=== PATIENT | female | born 1940 | race Two or more races ===

== ENCOUNTER 2016-12-02 12:11 | Emergency (ER) | payer MEDICARE, MEDICAID ==
[2016-12-02 12:11] VITALS: BMI 21.6
[2016-12-02 12:21] VITALS: RESP 18
[2016-12-02] MEDS ORDERED: Promethazine/Cod 6.25mg-10mg/5ml Syr UD PO STA (12:54)
[2016-12-02] MEDS ORDERED: Albuterol-Ipratrop 3 mg / 0.5 (3 ml) UD IH STA (13:00)
[2016-12-02] MEDS ORDERED: Promethazine/Cod 6.25mg-10mg/5ml Syr UD ONE (13:18)
[2016-12-02] MEDS ORDERED: Albuterol-Ipratrop 3 mg / 0.5 (3 ml) UD ONE (13:18)
[2016-12-02] MEDS ORDERED: Iohexol 240 (50 ml) ONE (13:18)
--- NOTE | 2016-12-02 13:21 | C.PDOC ---
History Of Present Illness 76-year-old female, PMHx includes COPD, Hypertension and Schizophrenia, presents to the emergency department accompanied by daughter, requesting CT of the abdomen. Patient reports that she has been experiencing abdominal pain x3 weeks. Pain is intermittent in nature and gradually worsening, associated with nausea. Patient seen by PMD last week, and was given Rx for CT scan. Daughter reports that she went to the radiology department without making an appointment , and they were unable to get the CT, resulting in her coming to the ED for evaluation. Denies fever, chills, recent illness, drooling, dysphagia, dyspnea, neck pain, CP, SOB, wheezing, vomiting, diarrhea, bloody stools, symptoms, or any other associated symptoms. No other complaints or distress at this time. Patient with an occasional dry cough due to Hx of COPD. Time Seen by Provider: 12/02/16 12:44 Chief Complaint (Nursing): Abdominal Pain History Per: Patient, Family History/Exam Limitations: no limitations Onset/Duration Of Symptoms: Days Current Symptoms Are (Timing): Still Present Severity: Moderate Location Of Pain/Discomfort: Suprapubic Past Medical History Reviewed: Historical Data, Nursing Documentation, Vital Signs Vital Signs: Last Vital Signs Temp 98.1 F 12/02/16 12:20 Pulse 80 12/02/16 12:20 Resp 18 12/02/16 12:20 BP 144/93 H 12/02/16 12:20 Pulse Ox 96 12/02/16 16:04 - Medical History PMH: Anemia, Diabetes, Diverticulitis, HTN, Schizophrenia Denies: Chronic Kidney Disease - [facility] Procedures INJECT/INFUSE NEC (04/04/15) OTHER C.A.T. SCAN (03/13/14) PACKED CELL TRANSFUSION (02/09/14) PERCUTANEOUS ABDOMINAL DRAINAGE (02/09/14) REMOV TRUNK DEVICE NEC (03/13/14) Family History: States: Unknown Family Hx - Social History Hx Tobacco Use: Yes Hx Alcohol Use: No Hx Substance Use: No - Immunization History Hx Tetanus Toxoid Vaccination: No Hx Influenza Vaccination: No Hx Pneumococcal Vaccination: No Review Of Systems Except As Marked, All Systems Reviewed And Found Negative. Constitutional: Negative for: Fever, Chills Cardiovascular: Negative for: Chest Pain, Palpitations Respiratory: Negative for: Shortness of Breath Gastrointestinal: Positive for: Nausea, Abdominal Pain. Negative for: Vomiting , Diarrhea, Melena, Hematochezia, Hematemesis Musculoskeletal: Negative for: Back Pain Neurological: Negative for: Weakness, Numbness, Headache, Dizziness Physical Exam - Physical Exam Appears: Non-toxic, No Acute Distress Skin: Warm, Dry, No Rash Head: Normacephalic Eye(s): bilateral: PERRL Oral Mucosa: Moist Lips: Normal Appearing Throat: No Erythema Neck: Trachea Midline, Supple Cardiovascular: Rhythm Regular, No Friction Rub, No Murmur, No JVD Respiratory: No Accessory Muscle Use, No Stridor, Wheezing (scattered right base ) Gastrointestinal/Abdominal: Soft, Tenderness (Moderate, suprapubic), No Distention, No Guarding, No Rebound, No Hernia Back: No CVA Tenderness Extremity: No Pedal Edema Neurological/Psych: Oriented x3, Normal Speech ED Course And Treatment - Laboratory Results Result Diagrams: 12/02/16 13:18 12/02/16 13:18 ECG: Viewed By Me ECG Rhythm: Sinus Rhythm ECG Interpretation: No Acute Changes Interpretation Of ECG: Sinus Rhythm w/ PACs, Left [place] Deviation, and Q waves in inferior leads. No acute ST/T wave changes. Rate From EC O2 Sat by Pulse Oximetry: 96 - CT Scan/US CT ABD/PEL Other Rad Studies (CT/US): Read By Radiologist, Radiology Report Reviewed CT/US Interpretation: Accession No. : [id number]. Patient Name / ID : ZANDRA MONDRAGON / [id number]. Exam Date : 12/02/2016 14:38:36 ( Approved ). Study Comment : Sex / Age : F / 76Y. Creator : Megan Bennett. Dictator : Megan Bennett. Radiological Technologist : [employer] Payroll Consultant : Megan Bennett. Approver2 : Report Date : 12/02/2016 15:30:47. My Comment : . PROCEDURE: CT Abdomen and Pelvis with contrast. HISTORY: LLQ pain. COMPARISON: Comparison is made to the previous study dated 12/09/2014. TECHNIQUE: Contrast dose: 100 mL Visipaque 320 intravenously. Axial and reformatted coronal and sagittal CT images of the abdomen and pelvis were obtained after IV and oral contrast administration. Radiation dose: Total exam DLP = 369.72 mGy-cm. This CT exam was performed using one or more of the following dose reduction techniques: Automated exposure control, adjustment of the mA and/or kV according to patient size, and/or use of iterative reconstruction technique. FINDINGS: LOWER THORAX : Again seen is a 4 millimeter nodule at the right lower lobe image 14 has not significantly changed since the previous exam. Cardiomegaly is again noted. LIVER: Unremarkable. No gross lesion or ductal dilatation. GALLBLADDER AND BILE DUCTS: Unremarkable. PANCREAS: Unremarkable. No gross lesion or ductal dilatation. SPLEEN: Unremarkable. ADRENALS: Thickening of the left adrenal gland is again noted. There is 90 millimeter heterogeneous low-attenuation nodule at or adjacent to the left adrenal gland and anterior to the left kidney is again noted. KIDNEYS AND URETERS: Unremarkable. No hydronephrosis. No solid mass. VASCULATURE: Unremarkable. No aortic aneurysm. BOWEL: Colonic diverticulosis are again seen at the descending and sigmoid colon. Sigmoid colon wall thickening is also again seen. No definite evidence of diverticulitis in this study. Mildly dilated small bowel loops noted. Mild constipation in the right colon. APPENDIX: No evidence of appendicitis. PERITONEUM: Unremarkable. No free fluid. No free air. LYMPH NODES: Unremarkable. No enlarged lymph nodes. BLADDER: Unremarkable. REPRODUCTIVE: Heterogeneous mass lesion is again seen at the right aspect of the pelvis. There is also heterogeneous mass at the left aspect of the uterus. The uterus border is not well visualized in this study. . BONES: No acute fracture. OTHER FINDINGS: None. IMPRESSION: Mildly dilated small bowel loops demonstrate mild diffuse wall thickening. Correlate clinically for enteritis. Mild constipation. Colonic diverticulosis without evidence of diverticulitis. Heterogeneous mass lesion in the pelvis. Further assessment by ultrasound and/ or MRI of the pelvis is suggested. The possibility of malignant neoplasm should be considered. Interval appearance of infrarenal abdominal aortic aneurysm measures 3.6 centimeter in transverse diameter since the previous exam. Progress Note: On re-evaluation, pt is afebrile, hemodynamicaly stable. non- toxic. PusleOx 96%RA. ENT: no acute findings. Lungs: CTA B/L, BS equal B/L. CVS: (+)S1S2, reg. Abd: benign, (-) guarding, (-) rebound, (-) localizedtenderness. Imaging review, diagnostics review. Case discussed with ED attending and no acute findings noted. Case discussed with pt's PMD Dr. Sanchez and clinicl findings/results review and discharge with outpt f/u recommend at this time. results review and discussed with pt and daugther, has clinical findings c/w COPD, abdominal pain r/o pelvic mass. Pt and family understand, pt request discharge now. Medical Decision Making Medical Decision Making: Impression Lower abdominal pain x3 weeks. Patient noted to be coughing, she was offered a nebulizer treatment, but is refusing at this time, and is requesting cough syrup instead. Plan: * CT Abd/Pel * EKG * BNP, CMP, Lipase, Trop I * CBC, PTT, PT * Chest X-Ray * Duoneb, Zofran, Phenergan/Codeine * Urinalysis * Reassess and Disposition Disposition Counseled Patient/Family Regarding: Studies Performed, Diagnosis, Need For Followup, Rx Given - Disposition Referrals: Bunny Sanchez MD [Staff Provider] - Disposition Time: 15:01 Condition: STABLE Additional Instructions: Take medication as prescribed FOLLOW UP WITH FOR FURTHER EVALUATION/MRI AND ULTRASOUND FOR FURTHER EVALUATION OF PELVIC MASS RETURN TO ED IFANY WORSENING OR NEW CHANGES. Prescriptions: Albuterol HFA [Ventolin HFA 90 mcg/actuation (8 g)] 1 puff IH Q6 #1 inhaler Promethazine/Codeine [Phenergan/Codeine Oral Syrup] 5 ml PO BID #60 ml traMADol [Ultram] 50 mg PO TID #7 tab Instructions: Abdominal Pain (ED), COPD (Chronic Obstructive Pulmonary Disease ) (ED) - Clinical Impression Clinical Impression: Abdominal pain, COPD (chronic obstructive pulmonary disease) - Scribe Statement The provider has reviewed the documentation as recorded by the Scribe Evelina Israel All medical record entries made by the Scribe were at my direction and personally dictated by me. I have reviewed the chart and agree that the record accurately reflects my personal performance of the history, physical exam, medical decision making, and the department course for this patient. I have also personally directed, reviewed, and agree with the discharge instructions and disposition.
[2016-12-02 13:22] LABS: BASO % 0.4 % (0.0-2.0); EOS # 0.1 K/uL (0.0-0.7); EOS % 0.5 % (0.0-4.0); HEMATOCRIT 42.4 % (34.0-47.0); LYMPH # 2.5 K/uL (1.0-4.3); LYMPH % 26.4 % (20.0-40.0); MEAN CELL VOLUME 100.6 fL (81.0-99.0); MEAN CORPUSCULAR HEMOGLOBIN 32.7 pg (27.0-31.0); MEAN CORPUSCULAR HGB CONC 32.5 g/dL (33.0-37.0); MEAN PLATELET VOLUME 6.6 fL (7.2-11.7); MONO # 0.8 K/uL (0.0-0.8); MONO % 8.5 % (0.0-10.0); NRBC % 0.1 % (0.0-2.0); RED CELL DISTRIBUTION WIDTH 14.2 % (11.5-14.5); WHITE BLOOD COUNT 9.5 K/uL (4.8-10.8)
[2016-12-02 13:30] LABS: CHLORIDE 93 mmol/L (98-107); POTASSIUM 4.1 mmol/L (3.6-5.2); SODIUM 138 mmol/L (132-148)
[2016-12-02 13:32] LABS: AST/SGOT 22 U/L (14-36); BILIRUBIN,TOTAL 0.2 mg/dL (0.2-1.3); GFR AFRICAN-AMERICAN > 60
[2016-12-02 13:33] LABS: ALB/GLOB RATIO 1.2 (1.0-2.1); ALKALINE PHOSPHATASE 83 U/L (38-126); ALT/SGPT 23 U/L (9-52); BLOOD UREA NITROGEN 5 mg/dL (7-17); CALCIUM 9.2 mg/dl (8.6-10.4); GLUCOSE,RANDOM 83 mg/dL (65-105); TOTAL PROTEIN 7.8 g/dL (6.3-8.3)
[2016-12-02 13:34] LABS: INR 0.9
[2016-12-02 13:43] LABS: CARBON DIOXIDE 39 mmol/L (22-30)
[2016-12-02 13:47] LABS: RBC URINE 3 /hpf (0-3); URINE BILIRUBIN NEGATIVE (NEGATIVE); URINE BLOOD NEGATIVE (NEGATIVE); URINE COLOR Yellow (YELLOW); URINE GLUCOSE (UA) NORMAL (Normal); URINE KETONE NEGATIVE (NEGATIVE); URINE LEUKOCYTE ESTERASE NEG Leu/uL (Negative); URINE PROTEIN NEGATIVE (NEGATIVE); URINE UROBILINOGEN NORMAL mg/dL (0.2-1.0); WBC URINE < 1 /hpf (0-5)
[2016-12-02] MEDS ORDERED: Iodixanol 320 MG/ML 100 ML BOTTLE IV ONE (14:09)
--- NOTE | 2016-12-02 15:32 | CT ---
PROCEDURE: CT Abdomen and Pelvis with contrast HISTORY: LLQ pain COMPARISON: Comparison is made to the previous study dated 12/09/2014 TECHNIQUE: Contrast dose: 100 mL Visipaque 320 intravenously. Axial and reformatted coronal and sagittal CT images of the abdomen and pelvis were obtained after IV and oral contrast administration. Radiation dose: Total exam DLP = 369.72 mGy-cm. This CT exam was performed using one or more of the following dose reduction techniques: Automated exposure control, adjustment of the mA and/or kV according to patient size, and/or use of iterative reconstruction technique. FINDINGS: LOWER THORAX: Again seen is a 4 millimeter nodule at the right lower lobe image 14 has not significantly changed since the previous exam. Cardiomegaly is again noted. LIVER: Unremarkable. No gross lesion or ductal dilatation. GALLBLADDER AND BILE DUCTS: Unremarkable. PANCREAS: Unremarkable. No gross lesion or ductal dilatation. SPLEEN: Unremarkable. ADRENALS: Thickening of the left adrenal gland is again noted. There is 90 millimeter heterogeneous low-attenuation nodule at or adjacent to the left adrenal gland and anterior to the left kidney is again noted. KIDNEYS AND URETERS: Unremarkable. No hydronephrosis. No solid mass. VASCULATURE: Unremarkable. No aortic aneurysm. BOWEL: Colonic diverticulosis are again seen at the descending and sigmoid colon. Sigmoid colon wall thickening is also again seen. No definite evidence of diverticulitis in this study. Mildly dilated small bowel loops noted. Mild constipation in the right colon. APPENDIX: No evidence of appendicitis. PERITONEUM: Unremarkable. No free fluid. No free air. LYMPH NODES: Unremarkable. No enlarged lymph nodes. BLADDER: Unremarkable. REPRODUCTIVE: Heterogeneous mass lesion is again seen at the right aspect of the pelvis. There is also heterogeneous mass at the left aspect of the uterus. The uterus border is not well visualized in this study. . BONES: No acute fracture. OTHER FINDINGS: None. IMPRESSION: Mildly dilated small bowel loops demonstrate mild diffuse wall thickening. Correlate clinically for enteritis. Mild constipation. Colonic diverticulosis without evidence of diverticulitis. Heterogeneous mass lesion in the pelvis. Further assessment by ultrasound and/or MRI of the pelvis is suggested. The possibility of malignant neoplasm should be considered. Interval appearance of infrarenal abdominal aortic aneurysm measures 3.6 centimeter in transverse diameter since the previous exam.
[2016-12-02 16:28] VITALS: BP 130/84; PULSE 78; TEMP 98
[2016-12-02 16:29] VITALS: O2SAT 96
--- NOTE | 2016-12-02 17:08 | RAD ---
PROCEDURE: CHEST RADIOGRAPH, 1 VIEW HISTORY: abd pain COMPARISON: Comparison is made to the previous study dated 02/09/2014 FINDINGS: LUNGS: No significant interval change in the lungs. PLEURA: Possible blunting of the right costophrenic angle. CARDIOVASCULAR: Normal. OSSEOUS STRUCTURES: No significant abnormalities. VISUALIZED UPPER ABDOMEN: Normal. OTHER FINDINGS: None. IMPRESSION: Questionable blunting of the right costophrenic angle. Otherwise no significant interval change.
--- NOTE | 2016-12-07 15:06 | CARD ---
APPROVED REPORT EKG Measurement Heart [id number] <Conclusion> Sinus rhythm with premature atrial complexes Left axis deviation Minimal voltage criteria for LVH, may be normal variant Anterior infarct, age undetermined Abnormal ECG
== END 2016-12-02 16:30 | disposition home or self-care (01) ==
LOC: C.ER 12:11
DX: R10.9 Unspecified abdominal pain (principal); J44.9 Chronic obstructive pulmonary disease, unspecified; I10 Essential (primary) hypertension; E11.9 Type 2 diabetes mellitus without complications; K57.92 Diverticulitis of intestine, part unspecified, without perforation or abscess without bleeding
CPT/HCPCS: 71010; 74177; 80053; 81001; 83690; 83880; 84484; 85025; 85610; 85730; 87086; 96374; 99284; J2405; Q9967